=== PATIENT | female | born 1990 | race Native Hawaiian/Other Pacific Islander ===

== ENCOUNTER 2022-05-06 11:15 | Emergency (ER) | payer BC, SELFPAY ==
[2022-05-06 11:29] VITALS: BP 148/88; PULSE 90; RESP 18; TEMP 36.6; O2SAT 100
[2022-05-06 11:31] VITALS: BP 148/88; PULSE 90; RESP 18; TEMP 36.6; O2SAT 100
--- NOTE | 2022-05-06 11:42 | ED.EAR ---
HPI - Ear Problem General Chief complaint: Ear Stated complaint: lt ear pain Time Seen by Provider: 05/06/22 11:42 Source: patient Mode of arrival: ambulatory Limitations: no limitations History of Present Illness HPI Narrative: 31-year-old female presented for complaint of left ear pain over the last 3 days. Endorses Occasional tinnitus, tenderness surrounding the ear and muffled hearing. She denies drainage, dizziness, nausea, vomiting, fevers or chills. She endorses chronic sinus congestion and pressure and does not take any medication for this. She is not taking anything for pain. MD Complaint: ear pain Related Data Allergies Allergy/AdvReac Type Severity Reaction Status Date / Time iodine Allergy Hives Verified 05/06/22 11:31 Review of Systems Review of Systems: CONSTITUTIONAL: Denies malaise, chills, or fever. EYES: Denies visual changes, redness, or discharge. ENT: Reports ear pain, sinus congestion CARDIOVASCULAR: Denies chest pain, palpitations, or edema. RESPIRATORY: Denies cough or dyspnea. GASTROINTESTINAL: Denies abdominal pain, nausea, vomiting, diarrhea SKIN: Denies rash or itching. MUSCULOSKELETAL: Denies myalgia. NEUROLOGIC: Denies headache. All systems reviewed & are unremarkable except as noted in HPI and below PMFSH Comments At time of signature, agree with nursing past medical, surgical, social and family history. There is no relevant family history pertinent to the presenting complaint Exam Narrative: GENERAL: Well-appearing EYES: PERRLA, conjunctivae clear ENT: Nares clear. Mucous membranes moist. Right TM pearly piper with dull light reflex; Left TM erythematous and bulging with purulent fluid; canal erythematous with purulent drainage; no tragal tenderness. Oropharynx not erythematous without lesions. Tonsils not enlarged and without exudate, no drooling, no hoarseness, no trismus, uvula midline. NECK: Supple. posterior auricular lymphadenopathy CHEST: Clear to auscultation, breath sounds equal. HEART: Regular rate and rhythm. SKIN: Warm, dry, no rash. NEURO: Alert and oriented x3. PSYCH: Normal mood and affect Course Course Emergency Course: Patient is aware of diagnosis, understands and agrees to treatment plan. Anticipatory guidance given. Patient agrees to follow-up as directed and is aware of reasons to seek care at the emergency department. Portions of this record may have been created with voice recognition software Level of Care: Express Care Visit Vital Signs Vital signs: Vital Signs Temperature 97.9 F 05/06/22 11:29 Pulse Rate 90 05/06/22 11:29 Respiratory Rate 18 05/06/22 11:29 Blood Pressure 148/88 H 05/06/22 11:29 Pulse Oximetry 100 05/06/22 11:29 Oxygen Delivery Room Air 05/06/22 11:29 Temperature 97.9 F 05/06/22 11:31 Pulse Rate 90 05/06/22 11:31 Respiratory Rate 18 05/06/22 11:31 Blood Pressure 148/88 H 05/06/22 11:31 Pulse Oximetry 100 05/06/22 11:31 Oxygen Delivery Room Air 05/06/22 11:31 Reviewed Medical Decision Making MDM Narrative Medical decision making narrative: Advised supportive measures and signs/symptoms to go to the ER. Patient is appropriate for outpatient treatment and follow-up. Differential Diagnosis Differential Diagnosis: Coronavirus, strep pharyngitis, allergic rhinitis, upper respiratory tract infection, sinusitis, rhinosinusitis, nasopharyngitis, viral pharyngitis, otitis media, otitis externa, eustachian tube dysfunction, foreign body, cerumen impaction. Vital Signs Vital Signs: Vital Signs Temperature 97.9 F 05/06/22 11:29 Pulse Rate 90 05/06/22 11:29 Respiratory Rate 18 05/06/22 11:29 Blood Pressure 148/88 H 05/06/22 11:29 Pulse Oximetry 100 05/06/22 11:29 Oxygen Delivery Room Air 05/06/22 11:29 Temperature 97.9 F 05/06/22 11:31 Pulse Rate 90 05/06/22 11:31 Respiratory Rate 18 05/06/22 11:31 Blood Pressure 148/88 H 05/06/22 11:31 Pulse Oximetry 10
== END 2022-05-06 11:54 | disposition home or self-care (01) ==
PROVIDERS: Emergency Provider Nurse Practitioner Family; PCP Nurse Practitioner Family
DX: H60.92 Unspecified otitis externa, left ear (principal); H66.92 Otitis media, unspecified, left ear
CPT/HCPCS: 99213; G0463

== ENCOUNTER 2022-10-03 08:04 | Emergency (ER) | payer BC, SELFPAY ==
[2022-10-03 08:16] VITALS: BP 142/88; PULSE 120; RESP 18; TEMP 37.1; O2SAT 100
--- NOTE | 2022-10-03 08:27 | ED.EAR ---
HPI - Ear Problem General Chief complaint: Ear Stated complaint: rt ear pain Source: patient Mode of arrival: ambulatory Limitations: no limitations History of Present Illness HPI Narrative: 31-year-old female presents to [facility] with complaints of pain to her right ear and chills for the past 2-3 days. Patient reports that she did have an ear infection in May 2022. Patient denies fever, body aches, chills, nausea vomiting or diarrhea. Patient denies recent swimming. Patient reports that she did take [id number] ibuprofen with minimal relief. MD Complaint: ear pain Location: right ear Duration: constant Severity: mild Relieving factors: nothing Exacerbating factors: nothing Associated symptoms ear: other (chills) Treatment prior to arrival: oral analgesic Related Data Allergies Allergy/AdvReac Type Severity Reaction Status Date / Time iodine Allergy Hives Verified 10/03/22 08:17 Review of Systems Constitutional: Constitutional: Reports chills, Denies fatigue, Denies fever(s) and Denies weakness ENT: Denies vertigo, Denies dizziness, Denies epistaxis and Denies nasal congestion Comments: Right ear pain Cardiovascular: Cardiovascular: Denies chest pain Respiratory: Respiratory: Denies cough, Denies dyspnea and Denies wheezing Gastrointestinal: Gastrointestinal: Denies diarrhea, Denies nausea and Denies vomiting Integumentary/Breasts: Skin/Breast: Denies rash Neurologic: Denies vertigo, Denies dizziness, Denies syncope and Denies headache(s) PMFSH Social History Social History (Updated 10/03/22 @ 08:29 by Maki Yu, PHILIPPE) Smoking status: Current every day smoker Comments At time of signature, I agree with nursing past medical, surgical, social and family history. There is no relevant family history pertinent to the presenting complaint. Exam Const: General: healthy appearing and no acute distress Nutritional Appearance: well nourished Orientation/consciousness: patient oriented x3 Limitations: no limitations HENMT: Head: normal to inspection Ears: Abnormal EAC present edema on the right and otic discharge purulent on the right and TM abnormal (Unable to visualize right TM due to purulent drainage, left TM normal) Mouth: Yes Normal oral and palatal mucosa present Teeth and gingiva: dentition normal Throat: posterior oropharynx normal and uvula midline Eyes: Conjunctivae: conjunctivae normal Neck: Neck: normal visual inspection Resp: Effort & Inspection: normal respiratory effort and not labored Auscultation: clear to auscultation bilaterally, no crackles, no rales, no rhonchi and no wheezes Cardio: Rate: regular rate Rhythm: regular rhythm Heart sounds: no murmurs Skin: General skin exam: normal color Rashes: no rashes Neuro: General: patient oriented x3 Psych: Mental Status: mental status grossly normal Affect: normal affect Attitude: cooperative Course Course Level of Care: Express Care Visit Vital Signs Vital signs: Vital Signs Temperature 37.1 C 10/03/22 08:16 Pulse Rate 120 H 10/03/22 08:16 Respiratory Rate 18 10/03/22 08:16 Blood Pressure 142/88 H 10/03/22 08:16 Pulse Oximetry 100 10/03/22 08:16 Oxygen Delivery Room Air 10/03/22 08:16 Temperature 37.1 C 10/03/22 08:16 Pulse Rate 120 H 10/03/22 08:16 Respiratory Rate 18 10/03/22 08:16 Blood Pressure 142/88 H 10/03/22 08:16 Pulse Oximetry 100 10/03/22 08:16 Oxygen Delivery Room Air 10/03/22 08:16 Medical Decision Making MDM Narrative Medical decision making narrative: Instructed patient to continue to alternate Motrin and Tylenol as needed. Patient agrees to take oral antibiotic and use antibiotic ear drops as prescribed. Instructed patient to follow-up with primary care provider if symptoms do not improve. Work excuse provided for patient. Differential Diagnosis Differential Diagnosis: Otitis media, acute otalgia, cerumen impaction Vital Signs V
[2022-10-03 08:38] VITALS: PULSE 100
== END 2022-10-03 08:38 | disposition home or self-care (01) ==
PROVIDERS: Emergency Provider Nurse Practitioner Family; PCP Nurse Practitioner Family
DX: H60.501 Unspecified acute noninfective otitis externa, right ear (principal); F17.200 Nicotine dependence, unspecified, uncomplicated
CPT/HCPCS: 99213; G0463

== ENCOUNTER 2023-08-03 09:10 | Emergency (ER) | payer BC, SELFPAY ==
[2023-08-03 09:23] VITALS: BP 156/93; PULSE 114; RESP 18; TEMP 37; O2SAT 98
--- NOTE | 2023-08-03 09:26 | ED.EAR ---
HPI - Ear Problem General Chief complaint: Ear Stated complaint: lt ear pain Source: patient, RN notes reviewed and old records reviewed Mode of arrival: ambulatory Limitations: no limitations History of Present Illness HPI Narrative: 32-year-old female presents to [facility] with complaints of cough, congestion that started approximately 1 week ago. Patient states now is having left ear pain and swelling this started yesterday. Patient has not taken anything for symptoms. Patient denies chest pain, shortness of breath, fever, dizziness, weakness. Related Data Home Medications Medication Instructions Recorded Confirmed levonorgestrel 21 mcg/24 hours (8 1 device intrauterine ONCE 08/03/23 08/03/23 yrs) 52 mg intrauterine device (Mirena) Allergies Allergy/AdvReac Type Severity Reaction Status Date / Time iodine Allergy Hives Verified 08/03/23 09:23 Review of Systems Constitutional: Constitutional: Reports no additional constitutional complaints, Denies body ache(s), Denies chills, Denies fatigue, Denies fever(s) and Denies headache(s) Eyes: Eyes: Reports no additional eye complaints and Denies blurry vision ENT: Reports system reviewed and no additional complaints, except as documented, Denies vertigo, Denies dizziness, Denies ear discharge, Reports otalgia, Denies facial pain, Denies headache(s), Reports nasal congestion, Denies nasal discharge, Denies sinus pain, Denies sinus pressure and Denies sore throat Cardiovascular: Cardiovascular: Reports no additional cardiovascular complaints, Denies chest pain, Denies chest pain at rest, Denies rapid heart rate and Denies dyspnea Respiratory: Respiratory: Reports no additional respiratory complaints, Reports chest congestion, Reports cough, Denies pain on inspiration, Denies pain with cough and Denies dyspnea Gastrointestinal: Gastrointestinal: Denies abdominal pain, Denies diarrhea, Denies nausea and Denies vomiting Integumentary/Breasts: Skin/Breast: Denies rash Neurologic: Reports system reviewed and no additional complaints, except as documented, Denies vertigo, Denies dizziness and Denies headache(s) Endocrine: Endocrine: Denies fatigue [facility] Social History Social History Smoking status: Current every day smoker Comments At the time of my signature, I reviewed and agree with the nursing past medical, surgical, social, and family history. There is no relevant family history pertinent to the patient complaint. Exam Const: General: cooperative, healthy appearing, no acute distress and well nourished Nutritional Appearance: well nourished Orientation/consciousness: patient oriented x3 Limitations: no limitations HENMT: Head: normal to inspection and normocephalic Ears: external ears normal, TM normal on the right, mastoids normal, Abnormal EAC present erythema on the left, edema on the left, EAC tenderness on the left and otic discharge purulent on the left and TM abnormal with loss of landmarks on the left Face/Nose/Sinus: normal facial exam Face and sinus: normal facial exam Mouth: Yes Normal oral and palatal mucosa present, Yes oropharynx normal and Yes moist mucous membranes Throat: tonsils normal, uvula midline and no uvular edema Eyes: General: appearance normal, both eyes and all related structures Sclera: sclerae normal Pupils: Equal, round and reactive pupils present Resp: Effort & Inspection: normal respiratory effort, able to speak in complete sentences, no audible wheezes, no cough, no respiratory distress and no retractions Auscultation: clear to auscultation bilaterally, no crackles, no rales, no rhonchi and wheezes inspiratory wheezes and scattered wheezes Cardio: Rate: regular rate Rhythm: regular rhythm Skin: General skin exam: normal color and no rashes or lesions noted Neuro: General: patient oriented x3 Cranial nerves: Yes Equal, round and reactive pupils present Psych:
== END 2023-08-03 09:45 | disposition home or self-care (01) ==
PROVIDERS: Emergency Provider Registered Nurse
DX: B34.9 Viral infection, unspecified (principal); H60.312 Diffuse otitis externa, left ear; H66.002 Acute suppurative otitis media without spontaneous rupture of ear drum, left ear; F17.200 Nicotine dependence, unspecified, uncomplicated
CPT/HCPCS: 99213; G0463